=== PATIENT | female | born 1945 | race American Indian/Alaskan Native ===

== ENCOUNTER 2018-12-21 11:47 | Emergency (ER) | payer MEDICARE ==
[2018-12-21 11:48] VITALS: BMI 43.8
[2018-12-21 12:19] VITALS: PULSE 86; RESP 18
--- NOTE | 2018-12-21 13:03 | ED PDOC ---
Arrival/HPI - General Chief Complaint: Hip Pain Time Seen by Provider: 12/21/18 12:30 Historian: Patient - History of Present Illness Narrative History of Present Illness (Text): 12/21/18 13:02 A 73 year old female, whose past medical history includes right ankle fracture, presents to the emergency department complaining of right hip/knee pain s/p knee replacement worsening for the past 2 months. Patient reports she had a double surgery in right knee. Today the pain was most excruciating and decided to come to the ER for evaluation. Patient denies any fever, trauma/fall, or any other complaints at this time. Time/Duration: > month (2 months) Symptom Course: Worsening Past Medical History - Provider Review Nursing Documentation Reviewed: Yes - Infectious Disease Hx of Infectious Diseases: None - Tetanus Immunization Tetanus Immunization: Unknown - Reproductive Menopause: No - Endocrine/Metabolic Hx Hypothyroidism: Yes - Musculoskeletal/Rheumatological Hx Arthritis: Yes - Psychiatric Hx Depression: No Hx Substance Use: No - Surgical History Hx Appendectomy: Yes Hx Orthopedic Surgery: Yes (fx rt ankle) Hx Tonsillectomy: Yes Other/Comment: rt hip, rt knee, breast reduction - Anesthesia Hx Anesthesia: No Hx Anesthesia Reactions: No Hx Malignant Hyperthermia: No - Suicidal Assessment Feels Threatened In Home Enviroment: No Family/Social History - Physician Review Nursing Documentation Reviewed: Yes Family/Social History: No Known Family HX Smoking Status: Never Smoked Hx Alcohol Use: No Hx Substance Use: No Hx Substance Use Treatment: No Allergies/Home Meds Allergies/Adverse Reactions: Allergies tramadol Allergy (Intermediate, Verified 12/21/18 12:22) VOMIT acetaminophen [From Percocet] Adverse Reaction (Intermediate, Verified 12/21/18 12:21) VOMIT oxycodone [From Percocet] Adverse Reaction (Intermediate, Verified 12/21/18 12:21) VOMIT Home Medications: Home Meds Medication Instructions Recorded Confirmed Levothyroxine [Levoxyl] 0.025 mg PO DAILY 01/13/15 12/21/18 Review of Systems - Physician Review All systems were reviewed & negative as marked: Yes - Review of Systems Constitutional: Other (no fall/trauma). absent: Fevers Musculoskeletal: Other (right hip/knee pain s/p knee replacement) Physical Exam Vital Signs Reviewed: Yes Vital Signs Temp Pulse Resp BP Pulse Ox 12/21/18 12:13 98.3 F 86 18 113/69 96 12/21/18 11:48 98.3 F 86 18 113/69 96 Temperature: Afebrile Blood Pressure: Normal Pulse: Regular Respiratory Rate: Normal Appearance: Positive for: Well-Appearing, Non-Toxic, Comfortable Pain Distress: None Mental Status: Positive for: Alert and Oriented X 3 - Systems Exam Head: Present: Atraumatic, Normocephalic Pupils: Present: PERRL Extroacular Muscles: Present: EOMI Conjunctiva: Present: Normal Mouth: Present: Moist Mucous Membranes Neck: Present: Normal Range of Motion Respiratory/Chest: Present: Clear to Auscultation, Good Air Exchange. No: Respiratory Distress, Accessory Muscle Use Cardiovascular: Present: Regular Rate and Rhythm, Normal S1, S2. No: Murmurs Abdomen: No: Tenderness, Distention, Peritoneal Signs Back: Present: Normal Inspection Upper Extremity: Present: Normal Inspection. No: Cyanosis, Edema Lower Extremity: Present: Tenderness (right knee), Swelling (from right knee down leg), Other (patient is able to lift both legs off bed). No: Normal ROM (decreased ROM to right knee) Neurological: Present: GCS=15, CN II-XII Intact, Speech Normal Skin: Present: Warm, Dry, Normal Color, Other (scar to right ankle). No: Rashes Psychiatric: Present: Alert, Oriented x 3, Normal Insight, Normal Concentration Medical Decision Making ED Course and Treatment: 12/21/18 13:02 Impression: 73 year old female with right hip/knee pain. Differential Diagnosis included but are not limited to: Chronic Pain Plan: -- Toradol -- Valium -- Reassess and disposition Progress Notes: - Medication Orders Current Medication Orders: Discontinued Medications Diazepam (Valium) 5 mg PO ONCE ONE; Protocol Stop: 12/21/18 12:51 Ketorolac Tromethamine (Toradol) 30 mg IM STAT STA Stop: 12/21/18 12:50 - Scribe Statement The provider has reviewed the documentation as recorded by the Christian Dc Provider Scribe Attestation: All medical record entries made by the Scribe were at my direction and personally dictated by me. I have reviewed the chart and agree that the record accurately reflects my personal performance of the history, physical exam, medical decision making, and the department course for this patient. I have also personally directed, reviewed, and agree with the discharge instructions and disposition. Disposition/Present on Arrival - Present on Arrival Any Indicators Present on Arrival: No History of DVT/PE: No History of Uncontrolled Diabetes: No Urinary Catheter: No History of Decub. Ulcer: No History Surgical Site Infection Following: None - Disposition Have Diagnosis and Disposition been Completed?: Yes Diagnosis: Chronic pain Disposition: HOME/ ROUTINE Disposition Time: 14:03 Patient Plan: Discharge Condition: GOOD Discharge Instructions (ExitCare): Chronic Pain (DC) Prescriptions: Ibuprofen [Motrin] 600 mg PO Q6 #20 tab Referrals: [facility] [place] [facility] [place] - Follow up with primary [facility] at [facility] [Outside] - Follow up with primary [facility] [place] [Outside] - Follow up with primary Seman,Marylin Linn MD [Primary Care Provider] - Follow up with primary Forms: [employer] (Malay)
[2018-12-21 14:01] VITALS: BP 100/64; TEMP 98; O2SAT 98
== END 2018-12-21 14:02 | disposition home or self-care (01) ==
LOC: ED 11:47
DX: G89.29 Other chronic pain (principal); E03.9 Hypothyroidism, unspecified
CPT/HCPCS: 96372; 99284; J1885